=== PATIENT | male | born 1955 | race Caucasian/White ===

== ENCOUNTER 2025-02-04 10:12 | Outpatient (CLI) | payer SELFPAY ==
--- NOTE | 2025-02-04 10:23 | CT_ITS ---
WS: [id number] CT CALCIUM SCORE REASON FOR VISIT: FAMILY HX OF PREMATURE CHD/HYPERTENSION/DYSPNEA; Coronary artery disease risk assessment COMPARISON: None TECHNIQUE: Noncontrast coronary CT in combination with quantitative analysis performed on a separate workstation were used to determine CACS (Agatston score) TOTAL EXAM DOSE: 44.97 mGy.cm ECG GATING: Prospective SCAN RANGE: Pulmonary artery bifurcation to Inferior aspect of heart COMPLICATIONS: None FINDINGS: Technical Quality/Examination Quality: Good Limitaiton: None OVERALL SCORES Total calcium score: 991 Total volume score: 805 mm3 Percentile: 75th to 90th percentile for patient this age ARTERY SCORES Left main coronary artery: 37 Left anterior descending artery: 216 Left circumflex artery: 165 Right coronary artery: 349 PDA 224 OTHER FINDINGS: Mediastinum: Normal. Thoracic aorta: Normal. Lungs: Normal. Upper Abdomen: Tiny esophageal hiatal hernia. MINIMAL: 1-10 MILD: 11-100 MODERATE: 101-400 SEVERE:>400 CT/CT heart w calcium score 03299 IMPRESSION: Total calcium score 991 compatible with severe coronary artery dise ase GRADING OF CORONARY ARTERY DISEASE (BASED ON TOTAL CALCIUM SCORE) NO EVIDENCE OF CAD: 0 calcium score
== END 2025-02-04 10:13 | disposition home or self-care (01) ==
LOC: RAD 10:19
PROVIDERS: PCP Family Medicine; Visit Provider Family Medicine
DX: I10 Essential (primary) hypertension (principal); Z82.49 Family history of ischemic heart disease and other diseases of the circulatory system; R06.00 Dyspnea, unspecified; R93.89 Abnormal findings on diagnostic imaging of other specified body structures
CPT/HCPCS: 75571